=== PATIENT | male | born 1990 | race Caucasian/White ===

== ENCOUNTER 2022-07-23 00:19 | Emergency (ER) | payer SELFPAY ==
[2022-07-23 00:37] VITALS: BP 148/92; PULSE 78; RESP 16; TEMP 98.1; BMI 30.4
[2022-07-23] MEDS ORDERED: FAMOTIDINE 20 MG TABLET PO ONE (02:19)
[2022-07-23] MEDS ORDERED: ACETAMINOPHEN 325 MG TABLET (FP) PO ONE (02:20)
[2022-07-23] MEDS ORDERED: MAG HYDROX/AL HYDROX/SIMETH 30 ML UNIT-DOSE CUP PO ONE (02:20)
[2022-07-23] MEDS ORDERED: FAMOTIDINE 20 MG TABLET ONE (02:23)
[2022-07-23] MEDS ORDERED: MAG HYDROX/AL HYDROX/SIMETH 30 ML UNIT-DOSE CUP ONE (02:24)
[2022-07-23] MEDS ORDERED: ACETAMINOPHEN 325 MG TABLET (FP) ONE (02:24)
== END 2022-07-23 03:01 | disposition home or self-care (01) ==
LOC: JER 00:19
DX: R10.13 Epigastric pain (principal)
CPT/HCPCS: 99283-25

== ENCOUNTER 2023-12-30 16:35 | Emergency (ER) | payer SELFPAY ==
[2023-12-30 17:10] VITALS: BP 157/86; PULSE 89; RESP 18; TEMP 97.8; BMI 31.4
[2023-12-30] MEDS ORDERED: ACETAMINOPHEN INJECTION 100 ML IVPB ONE (17:34)
[2023-12-30] MEDS ORDERED: MAG HYDROX/AL HYDROX/SIMETH 30 ML UNIT-DOSE CUP ONE (17:34)
[2023-12-30 17:36] LABS: HEMATOCRIT 42.8 % (35.4-49); HEMOGLOBIN 14.2 G/dL (11.7-16.9); MCH 29.8 pg (25.7-33.7); MCHC 33.1 g/dl (32.0-35.9); MEAN PLT VOLUME 8.7 fl (7.5-11.1); PLATELET COUNT 258.2 10^3/uL (134-434); RBC 4.75 10^6/uL (4.00-5.60); RDW 13.5 % (11.9-15.9)
[2023-12-30] MEDS: MAG HYDROX/AL HYDROX/SIMETH -MYLANTA- ORAL SUSPENSION PO ONE (17:44)
[2023-12-30] MEDS: ACETAMINOPHEN 1000 MG/100 ML BAG IVPB ONE (17:44)
[2023-12-30 18:03] LABS: ALBUMIN 4.6 g/dl (3.4-5.0); BILIRUBIN,TOTAL 0.3 mg/dl (0.2-1); CALCIUM 9.6 mg/dl (8.5-10.1); CREATININE 0.8 mg/dl (0.6-1.3); POTASSIUM 3.8 mmol/L (3.5-5.1); TOT PROT 7.4 g/dl (6.4-8.2)
[2023-12-30 18:31] LABS: PLATELET ESTIMATE ADEQUATE
== END 2023-12-30 21:20 | disposition home or self-care (01) ==
LOC: FER 16:35
PROC: 3E033NZ Introduction of Analgesics, Hypnotics, Sedatives into Peripheral Vein, Percutaneous Approach (ICD-10-PCS; principal; 2023-12-30)
DX: R10.13 Epigastric pain (principal); R11.0 Nausea
CPT/HCPCS: 36415; 71046-TC-FY; 74177-TC; 80053; 81003; 83690; 84484; 85027; 87086; 93005; 99285-25; J0131; Q9967